=== PATIENT | male | born 1990 | race Caucasian/White ===

== ENCOUNTER 2016-09-30 16:14 | Emergency (ER) | payer SELFPAY ==
[2016-09-30] MEDS ORDERED: METH4TAB2 PO (16:58)
[2016-09-30] MEDS ORDERED: NAPR500T8 PO (16:58)
[2016-09-30] MEDS ORDERED: CYCL5TAB PO (16:58)
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
[2016-09-30] MEDS ORDERED: IBUPROFEN 600 MG TABLET. PO ONE (17:15)
[2016-09-30 17:25] VITALS: BP 123/71
== END 2016-09-30 17:26 | disposition home or self-care (01) ==
LOC: ER 16:14
DX: M54.12 Radiculopathy, cervical region (principal)
CPT/HCPCS: 99283